=== PATIENT | female | born 1975 | race Caucasian/White ===

== ENCOUNTER 2021-09-25 06:46 | Day surgery (SDC) | payer OTHER ==
[~2021-09-25 06:46] MED LIST: Lactated Ringers 1,000 ML IV SCH; Sodium Chloride 0.9% 10 ML Syringe FLUSH PRN; Sodium Chloride 0.9% 2.5 ML Syringe FLUSH PRN; Sodium Chloride 0.9% 20 ML SDV IV PRN
[2021-09-25] MEDS ORDERED: Propofol 200 MG/20 ML SDV ONE ×2 (07:49→08:20)
[2021-09-25] MEDS ORDERED: fentaNYL 100 MCG/2 ML SDV ONE (08:20)
--- NOTE | 2021-09-25 08:20 | PCM.PREANE ---
Preanesthetic Assessment - Procedure Proposed Procedure: Colonoscopy - Anesthesia/Transfusion/Family Hx Anesthesia History: Prior Anesthesia Without Reaction Other Type of Anesthesia Reaction Comment: grandmother had a hard time coming out of anestesia Family History of Anesthesia Reaction: No Transfusion History: No Prior Transfusion(s) - Review of Systems General: No Symptoms Pulmonary: No Symptoms Cardiovascular: No Symptoms Gastrointestinal: No Symptoms (occas HB) Neurological: No Symptoms Other: Reports: None - Physical Assessment NPO Status Date: 09/24/21 Vital Signs: Last Vital Signs Temp 97.9 F 09/25/21 08:06 Pulse 71 09/25/21 08:06 Resp 16 09/25/21 08:06 BP 113/84 09/25/21 08:06 Pulse Ox 98 09/25/21 08:06 Height: 5 ft 5 in Weight: 85.729 kg (Obesity) ASA Class: 2 Mental Status: Alert & Oriented x3 Airway Class: Mallampati = 1 Dentition: Reports: Normal Dentition Thyro-Mental Finger Breadths: 3 Mouth Opening Finger Breadths: 3 ROM/Head Extension: Full Lungs: Clear to Auscultation, Normal Respiratory Effort Cardiovascular: Regular Rate, Regular Rhythm - Lab Values: Laboratory Last Values SARS-CoV-2 RNA ([facility]) NEGATIVE (NEGATIVE) 09/25/21 06:58 - Allergies Allergies/Adverse Reactions: Allergies Allergy/AdvReac Type Severity Reaction Status Date / Time adhesive tape Allergy Blisters Verified 09/25/21 08:07 - Acknowledgements Anesthesia Type Planned: General Anesthesia Pt an Appropriate Candidate for the Planned Anesthesia: Yes Alternatives and Risks of Anesthesia Discussed w Pt/Guardian: Yes Pt/Guardian Understands and Agrees with Anesthesia Plan: Yes PreAnesthesia Questionnaire HEENT History: Reports: Other (See Below) Other HEENT History: wears glasses Cardiovascular History: Reports: None Respiratory History: Reports: None Gastrointestinal History: Reports: Cholelithiasis, Other (See Below) Other Gastrointestinal History: occasional heartburn Genitourinary History: Reports: None [employer]UCATION [employer] History: Reports: Musculoskeletal History: Reports: None Neurological History: Reports: None Psychiatric History: Reports: Anxiety Endocrine/Metabolic History: Reports: Obesity/BMI 30+ Hematologic History: Reports: None Immunologic History: Reports: None Oncologic (Cancer) History: Reports: None Dermatologic History: Reports: None - Past Surgical History Head Surgeries/Procedures: Reports: None HEENT Surgical History: Reports: None Cardiovascular Surgical History: Reports: None Respiratory Surgical History: Reports: None GI Surgical History: Reports: None Female Surgical History: Reports: Breast Biopsy, Endometrial Ablation, Other (See Below) Other Female Surgeries/Procedures: dinesh salpingectomy Endocrine Surgical History: Reports: None Neurological Surgical History: Reports: None Musculoskeletal Surgical History: Reports: None Oncologic Surgical History: Reports: None Dermatological Surgical History: Reports: None - SUBSTANCE USE Tobacco Use Status *Q: Former Tobacco User Tobacco Use Within Last Twelve Months: No Days Per Week of Alcohol Use: 7 Number of Drinks Per Day: 3 Total Drinks Per Week: 21 Recreational Drug Use History: No - HOME MEDS Home Medications: Home Meds Multivitamin [Multivitamins] 1 tab PO DAILY 01/04/18 [History] Escitalopram Oxalate [Lexapro] 10 mg PO DAILY 09/19/21 [History] - CURRENT (IN HOUSE) MEDS Current Meds: Current Medications Lactated Ringer's (Ringers, Lactated) 1,000 mls @ 125 mls/hr IV ASDIRECTED KEILA Sodium Chloride (Sodium Chloride 0.9% 10 Ml Syringe) 10 ml FLUSH ASDIRECTED PRN PRN Reason: Keep Vein Open Sodium Chloride (Sodium Chloride 0.9% 2.5 Ml Syringe) 2.5 ml FLUSH ASDIRECTED PRN PRN Reason: Keep Vein Open Sodium Chloride (Sodium Chloride 0.9% 10 Ml Syringe) 10 ml FLUSH ASDIRECTED PRN PRN Reason: Keep Vein Open Sodium Chloride (Sodium Chloride 0.9% 2.5 Ml Syringe) 2.5 ml FLUSH ASDIRECTED PRN PRN Reason: Keep Vein Open Sodium Chloride (Sodium Chloride 0.9% 20 Ml Sdv) 10 ml IV ASDIRECTED PRN PRN Reason: IV Use Discontinued Medications Propofol (Propofol 200 Mg/20 Ml Sdv) Confirm Administered Dose 200 mg .ROUTE .STK-MED ONE Stop: 09/25/21 07:50
--- NOTE | 2021-09-25 09:27 | PCM.POSTAN ---
POST ANESTHESIA ASSESSMENT - MENTAL STATUS Mental Status: Alert, Oriented - VITAL SIGNS Vital Signs: Last Vital Signs Temp 97.5 F 09/25/21 09:21 Pulse 68 09/25/21 09:21 Resp 18 09/25/21 09:21 BP 110/54 L 09/25/21 09:21 Pulse Ox 100 09/25/21 09:21 - RESPIRATORY Respiratory Status: Respiratory Rate WNL, Airway Patent, O2 Saturation Stable - CARDIOVASCULAR CV Status: Pulse Rate WNL, Blood Pressure Stable - GASTROINTESTINAL GI Status: No Symptoms - PAIN Pain Score: 0 - POST OP HYDRATION Hydration Status: Adequate & Stable
--- NOTE | 2021-09-25 09:35 | PCM.OPNOTE ---
- General Post-Op/Procedure Note Date of Surgery/Procedure: 09/25/21 Operative Procedure(s): Screening colonoscopy with polypectomy Findings: Transverse colon polyp Pre Op Diagnosis: Screening colonoscopy Post-Op Diagnosis: Transverse colon polyp Anesthesia Technique: OZ Primary Surgeon: Rebecca Baltazar Condition: Good
--- NOTE | 2021-09-25 09:42 | PCM48HPAN ---
Post Anesthesia Note - EVALUATION WITHIN 48HRS OF ANESTHETIC Vital Signs in Normal Range: Yes Patient Participated in Evaluation: Yes Respiratory Function Stable: Yes Airway Patent: Yes Cardiovascular Function Stable: Yes Hydration Status Stable: Yes Pain Control Satisfactory: Yes Nausea and Vomiting Control Satisfactory: Yes Mental Status Recovered: Yes Vital Signs: Last Vital Signs Temp 97.5 F 09/25/21 09:21 Pulse 70 09/25/21 09:31 Resp 20 09/25/21 09:31 BP 115/73 09/25/21 09:31 Pulse Ox 98 09/25/21 09:31 - COMMENTS/OBSERVATIONS Free Text/Narrative:: Pt doing well post-op. VSS. No apparent anesthetic complications. Dr. Garfield Chisholm
[2021-09-25 11:43] VITALS: BP 107/69; PULSE 62
--- NOTE | 2021-09-25 17:10 | OR ---
SURGEON: REBECCA BALTAZAR MD DATE OF PROCEDURE: 09/25/2021 PREOPERATIVE DIAGNOSIS: Screening colonoscopy. POSTOPERATIVE DIAGNOSIS: Transverse colon polyp. PROCEDURE PERFORMED: Screening colonoscopy with polypectomy. PRIMARY SURGEON: Rebecca Baltazar MD ANESTHESIA: MAC. INSTRUMENT USED: Olympus colonoscope. EXTENT OF EXAM: To the cecum. PREPARATION: Good. LIMITATIONS: None. INDICATIONS FOR EXAMINATION: The patient is a 46-year-old female who presented for first-time screening colonoscopy. I explained the procedure, expected perioperative course, and the risks. She verbalized understanding and wishes to proceed. PROCEDURE IN DETAIL: Patient was brought in to the endoscopy suite and placed in a left lateral decubitus position. A time-out was completed verifying the patient's name, age, date of , allergies, and procedure to be performed. Monitored anesthesia care was induced and continuous oxygen was provided via face mask throughout the procedure. After adequate sedation was achieved, a digital rectal exam was performed. This exam was within normal limits. A well-lubricated colonoscope was inserted in the rectum and advanced under direct visualization to the level of the cecum. The cecum was identified by both visual and anatomic landmarks. A photograph was taken of the cecal cap as well as with the scope retroflexed within the cecum. The scope was then fully withdrawn while examining the color, texture, anatomy, and integrity of the mucosa from the cecum to the anal canal. The patient was found to have a transverse colon polyp within the distal transverse colon. This was small and sessile and removed in piecemeal fashion using a cold biopsy forceps. The remainder of the colon was normal. The scope was then brought into the rectum and retroflexed to allow visualization of the anal canal opening. This appeared normal and a photograph was taken. The scope was then straightened out and fully withdrawn. The cecum to anus time was 10 minutes. The patient tolerated the procedure well and was transferred to the PACU in stable condition. ENDOSCOPIC DIAGNOSIS: Transverse colon polyp. RECOMMENDATION: Follow up in clinic in two weeks. ALEXANDRO MATTSON /[id number]
== END 2021-09-25 09:50 | disposition home or self-care (01) ==
LOC: MW.SDS 06:46
PROVIDERS: ATTEND Surgery
DX: Z12.11 Encounter for screening for malignant neoplasm of colon (principal); D12.3 Benign neoplasm of transverse colon; K80.20 Calculus of gallbladder without cholecystitis without obstruction; K42.9 Umbilical hernia without obstruction or gangrene; E66.9 Obesity, unspecified; Z01.812 Encounter for preprocedural laboratory examination; Z20.822 Contact with and (suspected) exposure to COVID-19; Z98.890 Other specified postprocedural states; Z87.891 Personal history of nicotine dependence; Z91.048 Other nonmedicinal substance allergy status; Z68.31 Body mass index [BMI] 31.0-31.9, adult
CPT/HCPCS: 45380; 87635; J2704; J3010; J7120; 00812; U0002

== ENCOUNTER 2022-06-16 08:57 | Day surgery (SDC) | payer MEDICARE, OTHER ==
[~2022-06-16 08:57] MED LIST changes: +Albuterol 0.083% 2.5 MG/3 ML Neb Soln NEB PRN; +HYDROmorphone 1 MG/ML Syringe IVPUSH PRN; +Metoclopramide 10 MG/2 ML SDV IVPUSH PRN; +Morphine 4 MG/ML VIAL IVPUSH PRN; +Naloxone 0.4 MG/ML SDV IVPUSH PRN; +Ondansetron 4 MG/2 ML SDV IVPUSH PRN; +ceFAZolin 2 GM in Premix Bag 1 BAG IV ONE; +fentaNYL 50 MCG/ML SDV IVPUSH PRN
[2022-06-16] MEDS ORDERED: Ropivacaine 0.5% 5 MG/ML 30 ML SDV ONE (09:04)
[2022-06-16] MEDS ORDERED: Propofol 200 MG/20 ML SDV ONE (09:08)
[2022-06-16] MEDS ORDERED: Bupivacaine 0.5% 30 ML SDV ONE (09:08)
[2022-06-16] MEDS ORDERED: ceFAZolin 1 GM Vial ONE (09:08)
[2022-06-16] MEDS ORDERED: fentaNYL 100 MCG/2 ML SDV ONE (09:09)
[2022-06-16] MEDS ORDERED: Rocuronium Bromide 50 MG/5 ML Syringe ONE (09:10)
[2022-06-16] MEDS ORDERED: Dexmedetomidine 200 MCG/2 ML SDV ONE (09:10)
[2022-06-16] MEDS ORDERED: Lidocaine 2% 100 MG/5 ML Syringe ONE (10:07)
[2022-06-16] MEDS ORDERED: Magnesium Sulfate (4.06 MEQ/ML) 5 GM/10 ML SDV ONE (10:09)
[2022-06-16] MEDS ORDERED: Dexamethasone 4 MG/ML 5 ML MDV ONE (10:13)
[2022-06-16] MEDS ORDERED: ePHEDrine 50 MG/ML SDV ONE (10:19)
[2022-06-16] MEDS ORDERED: Indocyanine Green 25 MG SDV ONE (10:20)
[2022-06-16] MEDS ORDERED: Sugammadex Sodium 200 MG/2 ML VIAL ONE (10:47)
[2022-06-16] MEDS ORDERED: Ketorolac 30 MG/ML SDV ONE (10:47)
[2022-06-16] MEDS ORDERED: Ondansetron 4 MG/2 ML SDV ONE (10:47)
[2022-06-16 13:36] VITALS: BP 105/63; PULSE 55
== END 2022-06-16 13:20 | disposition home or self-care (01) ==
LOC: MW.SDS 08:57
PROVIDERS: ATTEND Surgery
DX: K80.10 Calculus of gallbladder with chronic cholecystitis without obstruction (principal); K82.8 Other specified diseases of gallbladder; K42.9 Umbilical hernia without obstruction or gangrene; E66.9 Obesity, unspecified; Z79.899 Other long term (current) drug therapy; Z98.890 Other specified postprocedural states; Z87.891 Personal history of nicotine dependence; Z68.31 Body mass index [BMI] 31.0-31.9, adult
CPT/HCPCS: 47562; J0131; J0690; J1100; J1885; J2405; J2704; J2795; J3010; J3475; J3490; J7120